=== PATIENT | female | born 1945 | race Caucasian/White ===

== ENCOUNTER 2018-02-19 12:33 | Emergency (ER) | payer MEDICARE ==
[~2018-02-19] VITALS: Ht 157.5 cm; Wt 113.4 kg
--- NOTE | 2018-02-19 15:30 | Diagnostic Imaging Report ---
CT Abdomen And Pelvis with Intravenous Contrast INDICATION: Urinary retention TECHNIQUE: Thin collimation axial images obtained from the diaphragm to the level of the pubic symphysis following the uneventful administration of 100 cc of low osmolar, nonionic intravenous contrast. Dose reduction techniques used: Automated exposure control, adjustment of the mAs and/or kVp according to patient size, standardized low-dose protocol, and/or iterative reconstruction technique. RADIATION DOSE: Total DLP: 684.4 mGy*cm Estimated effective dose: (DLP x 0.015 x size factor) mSv CTDIvol has been reviewed. It is below the limits set by the Radiation Protocol Committee (RPC). COMPARISON: None. ABDOMEN FINDINGS: Lung Bases: Small hiatal hernia. The lungs are diffusely hyperinflated with mild bibasilar scarring. A fat-containing right Bochdalek hernia is present. There are calcifications of the mitral valve annulus. Liver: Normal attenuation. No evidence for mass. No cirrhotic morphology. Main portal vein measures 17 mm in diameter and is widely patent. Gallbladder: Absent. Biliary tree is normal. Pancreas: Normal attenuation without mass or ductal dilatation. Spleen: Measures 14 cm in length. No mass. Adrenal Glands: Diffuse thickening of the right adrenal gland. A nodule in the apex cannot be excluded. Left adrenal gland is normal. Kidneys: Right: Normal enhancement. No soft tissue mass. No hydronephrosis. Left: Normal enhancement. No soft tissue mass. No hydronephrosis. Lymph Nodes: No enlarged abdominal or periaortic lymph nodes. Aorta: Normal in diameter. Scattered calcifications are present PELVIS FINDINGS: Bowel: Stomach: Collapsed. The posterior wall of the cardia of the stomach is prominent. This may be due to the hiatal hernia but underlying mass cannot be excluded. Small Bowel: Normal in caliber with normal wall thickness. Large Bowel: Diverticulosis coli, particularly involving the sigmoid colon with associated mural thickening suggestive of previous bouts of diverticulitis. High attenuation material at the base of the cecum has the appearance of barium. No pericolonic inflammation or colonic dilatation.. Appendix: Not visualized and may be absent. Bladder: Collapsed around a Schmidt catheter. There is streak artifact from left hip prosthesis. There are multiple bubbles of air wall of the bladder dome to the left of midline. No perivesicular inflammation. There is a calcification between the pubic symphysis and the bladder neck measuring 1.2 x 0.7 cm. This is anterior to the Schmidt catheter. The uterus is present and normal in morphology with calcifications of the arcuate arteries. A calcification in the left ovary measures 5 mm. No free fluid or fluid collection. Bones: Grade 1 anterolisthesis of L4 on L5 without pars defects. Mild degenerative changes of L5-S1. No compression deformities or focal osseous lesions. Left hip prosthesis is in appropriate position without associated fracture. Soft tissues: Unremarkable. IMPRESSION: 1. Nondependent wall of the bladder dome. The differential includes air from Schmidt placement, emphysematous cystitis, or colovesical fistula secondary to previous bouts of diverticulitis. Please correlate for signs/symptoms of acute cystitis. Barium enema is recommended to identify the presence of fistula. 2. No renal calculus or obstructive uropathy. 3. Small hiatal hernia. Focal thickening of the gastric cardia is nonspecific. Recommend further characterization with endoscopy. 4. Diverticulosis coli. No evidence for bowel obstruction or inflammation. 5. Right adrenal hyperplasia. Underlying nodule cannot be excluded. Recommend further characterization with CT dedicated to the adrenal glands. 6. Cholecystectomy. Normal biliary tree. 7. Portal hypertension and mild splenomegaly. No ascites. Signed by: Dr. Arie Salazar MD on 02/19/2018 3:27 PM
== END 2018-02-19 17:01 | disposition home or self-care (01) ==
LOC: FSED 12:33
DX: R30.0 Dysuria (principal); R33.9 Retention of urine, unspecified
CPT/HCPCS: 51700; 74177; 81003; 99284

== ENCOUNTER 2021-06-30 12:17 | Emergency (ER) | payer MEDICARE ==
[~2021-06-30] VITALS: Ht 154.9 cm; Wt 83.9 kg
== END 2021-06-30 13:11 | disposition home or self-care (01) ==
LOC: FSED 12:22
DX: N13.9 Obstructive and reflux uropathy, unspecified (principal); R33.9 Retention of urine, unspecified; I10 Essential (primary) hypertension; E66.01 Morbid (severe) obesity due to excess calories
CPT/HCPCS: 51700; 99283

== ENCOUNTER 2021-07-03 17:49 | Emergency (ER) | payer MEDICARE ==
[~2021-07-03] VITALS: Ht 154.9 cm; Wt 83.9 kg
[2021-07-03] MEDS ORDERED: CEFDINIR300 MG PO ×2 (18:25→18:32)
[2021-07-03] MEDS ORDERED: PROBIOTIC & AC1 EACH PO ×2 (18:25→18:32)
[2021-07-03] MEDS ORDERED: FLEET ENEMA133 ML PR ×2 (18:25→18:32)
== END 2021-07-03 18:45 | disposition home or self-care (01) ==
LOC: FSED 17:55
DX: R31.9 Hematuria, unspecified (principal); N39.0 Urinary tract infection, site not specified; K59.00 Constipation, unspecified; I10 Essential (primary) hypertension; E66.01 Morbid (severe) obesity due to excess calories
CPT/HCPCS: 51700; 81003; 99282